=== PATIENT | female | born 1990 | race Asian ===

== ENCOUNTER 2019-12-29 07:44 | Inpatient (IN) | payer OTHER ==
[2019-12-29] MEDS ORDERED: MINERAL OIL 30 ML ORAL LIQD PO PRN (08:51)
[2019-12-29] MEDS ORDERED: ePHEDrine SULFATE 50 MG/1 ML INJ IV PRN (08:51)
[2019-12-29] MEDS ORDERED: ONDANSETRON 4 MG/2 ML INJ IV PRN ×2 (08:51→16:18)
[2019-12-29] MEDS ORDERED: fentaNYL 100 MCG/2 ML INJ IV PRN (08:51)
[2019-12-29] MEDS ORDERED: TERBUTALINE 1 MG/1 ML INJ IVP PRN (08:51)
[2019-12-29] MEDS ORDERED: AMPICILLIN/NS 2 GM/100 ML 2 GM/100 ML BAG IV ONE (08:51)
[2019-12-29] MEDS ORDERED: BUTORPHANOL 2 MG/1 ML INJ IV PRN (08:51)
[2019-12-29] MEDS ORDERED: TERBUTALINE 1 MG/1 ML INJ SUB-Q PRN (08:51)
[2019-12-29] MEDS ORDERED: OXYTOCIN 20 UNIT/1000ML DRIP 20 UNITS/1,000 ML BAG IV SCH (09:00)
[2019-12-29] MEDS ORDERED: LACTATED RINGERS 1,000 ML IV SCH (09:00)
[2019-12-29] MEDS ORDERED: OXYTOCIN DRIP 30 UNITS/500 ML BAG IV SCH (09:00)
[2019-12-29] MEDS ORDERED: LIDOCAINE (2%) 20 MG/1 ML VIAL 20 ML MDV INFILTRATI ONE ×2 (10:00→13:14)
--- NOTE | 2019-12-29 10:33 | History and Physical Report ---
History of Present Illness Date of examination: 12/29/19 Date of admission: 12/29/2019 Chief complaint: Leaking of fluids History of present illness: 29 yo, @ 39.5 wks, initiated care with [facility] at 12.4 wks gestation. Her has been uncomplicated. She presents to [facility] with reports of leaking of fluids since unknown time. Reports +FM. Denies any VB. Labs: B+, antibody negative; rubella immune; RPR non-reactive; HIV non-reactive; GC/C hlamydia negative; HBsAg negative; 1 hr gtt - 145; 3 hr gtt - 140, 139, 128, 81; GBS negative Past History Past Medical History: no pertinent history Past Surgical History: no surgical history Family/Genetic History: none Social history: , full code. denies: smoking, alcohol abuse, prescription drug abuse, IV drug use - Obstetrical History Expected Date of Delivery: 01/06/20 Actual Gestation: 38 Week(s) 6 Day(s) : 1 Para: 0 Hx # Term Pregnancies: 0 Number of Pregnancies: 0 Spontaneous Abortions: 0 Induced : 0 Number of Living Children: 0 Medications and Allergies Allergies Allergy/AdvReac Type Severity Reaction Status Date / Time cephalexin Allergy Swelling Verified 12/29/19 09:33 Active Meds: Active Medications Butorphanol Tartrate (Stadol) 2 mg IV Q2H PRN PRN Reason: Pain , Severe (7-10) Ephedrine Sulfate (Ephedrine Sulfate) 10 mg IV Q2M PRN PRN Reason: Hypotension Fentanyl (Sublimaze) 100 mcg IV Q2H PRN PRN Reason: Pain,Severe (7-10) LABOR PAIN Oxytocin/Sodium Chloride (Pitocin/Ns 20 Unit/1000ml Drip) 20 units in 1,000 mls @ 125 mls/hr IV DIRECT DEEDEE Oxytocin/Sodium Chloride (Pitocin/Ns 30 Unit/500ml) 30 units in 500 mls @ 2 mls/hr IV TITR DEEDEE; Protocol Lactated Ringer's (Lactated Ringers) 1,000 mls @ 125 mls/hr IV DIRECT DEEDEE Mineral Oil (Mineral Oil) 30 ml PO QHS PRN PRN Reason: Constipation Ondansetron HCl (Zofran) 4 mg IV Q8H PRN PRN Reason: Nausea And Vomiting Terbutaline Sulfate (Brethine) 0.25 mg SUB-Q ONCE PRN PRN Reason: Hyperstimulation/Hypertonicity Terbutaline Sulfate (Brethine) 0.25 mg IVP ONCE PRN PRN Reason: Hyperstimulation/Hypertonicity Review of Systems All systems: negative Genitourinary: leakage of fluid (clear fluids) - Vital Signs Vital signs: Vital Signs Pulse Pulse Ox 59 L 98 12/29/19 08:14 12/29/19 08:14 Temp Pulse Resp BP Pulse Ox 68 16 121/70 98 12/29/19 10:18 12/29/19 08:19 12/29/19 10:00 12/29/19 10:18 - Physical Exam Breasts: Positive: normal Cardiovascular: Regular rate Lungs: Positive: Normal air movement Abdomen: Positive: other (gravid) Genitourinary (Female): Positive: normal external genitalia Vagina: Positive: other (clear fluids noted) Uterus: Positive: enlarged (S=D) Extremities: Positive: normal - Obstetrical FHR: category 1 Uterine Contraction Monitor Mode: External Cervical Dilatation: 3 (per RN) Cervical Effacement Percentage: 50 station: -2 Uterine Contraction Frequency (min): 3-6 Uterine Contraction Pattern: Irregular Uterine Tone Measurement Phase: Resting Uterine Contraction Intensity: Mild Results All other labs normal. Assessment and Plan - Patient Problems (1) SROM (spontaneous rupture of membranes) Current Visit: Yes Status: Acute Plan to address problem: Admit to L & D Pitocin augmentation @ 2mu/min, increase as tolerated Pain meds as tolerated Anticipate (2) 38 weeks gestation of Current Visit: Yes Status: Acute
[2019-12-29 10:57] LABS: Hematocrit 38.5 % (30.3-42.9); Hemoglobin 12.5 gm/dl (10.1-14.3); Mean Corpuscular HGB Conc 33 % (30-34); Mean Corpuscular Volume 86 fl (79-97); Platelet Count 230 K/mm3 (140-440); Red Blood Count 4.49 M/mm3 (3.65-5.03); Red Cell Distribution Width 15.9 % (13.2-15.2)
[2019-12-29] MEDS ORDERED: AMPICILLIN/NS 1 GM/50 ML 1 GM/50 ML BAG IV SCH (13:00)
[2019-12-29] MEDS ORDERED: PROMETHAZINE 25 MG TAB PO PRN (16:18)
[2019-12-29] MEDS ORDERED: diphenhydrAMINE 25 MG CAP PO PRN (16:18)
[2019-12-29] MEDS ORDERED: WITCH HAZEL/ GLYCERIN PAD TP PRN (16:18)
[2019-12-29] MEDS ORDERED: LANOLIN/ZINC/DIMETHICONE (LANSINOH) 7 GM TP PRN (16:18)
--- NOTE | 2019-12-29 16:26 | Procedure Note ---
OB Delivery Note - Delivery Date of Delivery: 12/29/19 (1530) Surgeon: REJI KINSEY (CNM) Estimated blood loss: 300cc - Vaginal Delivery presentation: vertex, compound (left hand) Delivery position: OA (MIRYAM) Delivery induction: none Delivery augmentation: rupture of membranes (12/29/2019 @ 0600), pitocin Delivery monitor: external FHT, external uterine Route of delivery: Delivery placenta: spontaneous (1535) Delivery cord: 3 umbilical vessels Episiotomy: none Delivery laceration: 2nd degree (repaired) Delivery repair: vicryl (3.0 CT-1, 3.0 SH) Anesthesia: none Delivery comments: of viable, slightly stunned male infant. Placed directly on maternal abdomen, dried with warm blanket and manually stimulated producing spontaneous cry. Cord double clamped, cut by myself after cessation of pulsation. Placenta spontaneously delivered, rinaldi, disposed per hospital policy. Perineum with 2nd degree laceration, repaired, ice pack applied. Uterus firm @ U-2, hemostasis maintained. Mother and baby safe, stable and left in care of RN. - A at 1 minute: 8 at 5 minutes: 9 Gender: Female (Weight: 3315 gms (7lbs 5ozs) 18.5 inches)
[2019-12-29] MEDS: IBUPROFEN 600 MG TAB PO SCH ×2 (18:30→23:00)
[2019-12-29] MEDS: oxyCODONE /ACETAMINOPHEN 5-325MG TAB PO PRN (21:53)
[2019-12-30 04:49] LABS: Hematocrit 31.3 % (30.3-42.9); Hemoglobin 10.2 gm/dl (10.1-14.3)
[2019-12-30] MEDS: IBUPROFEN 600 MG TAB PO SCH ×2 (06:09→16:31)
[2019-12-30] MEDS: PRENATAL VIT27-FE FUMARATE-FOLIC ACID VIT TAB PO SCH (09:40)
[2019-12-30] MEDS: oxyCODONE /ACETAMINOPHEN 5-325MG TAB PO PRN (09:40)
[2019-12-30] MEDS: FERROUS SULFATE 325 MG TAB PO SCH ×2 (09:40→22:21)
--- NOTE | 2019-12-30 11:09 | Progress Note ---
Assessment and Plan A: Pp Day #1 Stable P: Follow Routine Orders D/C Home in AM RTO in 6 Weeks Subjective - Subjective Date of service: 12/30/19 Patient reports: appetite normal, voiding normally, pain well controlled, flatus, ambulating normally Wesley: doing well Objective - Vital Signs Latest vital signs: Vital Signs Temp Pulse Resp BP BP Pulse Ox 12/30/19 08:04 98.5 F 99 H 18 104/54 98 12/30/19 05:52 97.9 F 93 H 20 98/61 98 12/30/19 01:44 98.2 F 77 16 107/60 98 12/29/19 22:00 99.6 F 12/29/19 21:10 100 F H 82 18 110/63 100 12/29/19 20:47 100.0 F H 85 18 110/63 98 12/29/19 18:05 86 112/61 12/29/19 17:50 76 116/58 12/29/19 17:36 83 123/59 12/29/19 17:20 81 114/65 12/29/19 17:05 81 117/62 12/29/19 16:12 83 99 12/29/19 16:09 91 H 88 12/29/19 16:07 94 H 100 12/29/19 16:05 101 H 133/61 12/29/19 16:02 101 H 100 12/29/19 15:57 80 100 12/29/19 15:52 108 H 98 12/29/19 15:50 96 H 145/85 12/29/19 15:47 111 H 98 12/29/19 15:42 99 H 100 12/29/19 15:37 98 H 100 12/29/19 15:35 93 H 106/59 12/29/19 15:32 85 96 12/29/19 15:29 94 H 119/66 12/29/19 15:27 98 H 97 12/29/19 15:22 89 98 12/29/19 15:17 85 98 12/29/19 15:12 104 H 96 12/29/19 15:07 85 97 12/29/19 15:02 91 H 98 12/29/19 15:00 86 144/107 94 12/29/19 14:57 82 97 12/29/19 14:54 88 94 12/29/19 14:52 75 98 06/16/20 14:47 87 97 12/29/19 14:44 71 91 12/29/19 14:42 75 100 12/29/19 14:37 84 98 12/29/19 14:32 73 94 12/29/19 14:31 84 91 12/29/19 14:29 70 134/73 12/29/19 14:27 74 98 12/29/19 14:23 79 88 12/29/19 14:22 84 99 12/29/19 14:17 69 100 12/29/19 14:14 73 L 12/29/19 14:12 77 99 12/29/19 14:07 70 91 12/29/19 14:02 73 97 12/29/19 14:00 75 123/60 12/29/19 13:59 59 L 70 L 12/29/19 13:57 87 73 L 12/29/19 13:52 66 89 12/29/19 13:47 80 98 12/29/19 13:46 78 0 L 12/29/19 13:44 85 123/85 12/29/19 13:36 65 71 L 12/29/19 13:35 86 100 12/29/19 13:30 62 126/80 95 12/29/19 13:25 61 97 12/29/19 13:24 90 125/87 12/29/19 13:20 82 99 12/29/19 13:17 81 87 12/29/19 13:14 80 97 12/29/19 13:11 93 H 89 12/29/19 13:09 67 98 12/29/19 13:04 77 99 12/29/19 13:02 75 L 12/29/19 13:00 62 123/73 12/29/19 12:59 77 100 12/29/19 12:57 65 86 12/29/19 12:54 75 72 L 12/29/19 12:51 70 77 L 12/29/19 12:49 61 99 12/29/19 12:44 80 94 12/29/19 12:39 70 98 12/29/19 12:34 59 L 98 12/29/19 12:30 71 125/73 12/29/19 12:29 72 100 12/29/19 12:24 72 100 12/29/19 12:19 65 99 12/29/19 12:14 73 100 12/29/19 12:09 65 90 12/29/19 12:04 72 98 12/29/19 12:00 65 120/82 12/29/19 11:59 65 100 12/29/19 11:54 70 98 12/29/19 11:49 75 100 12/29/19 11:44 70 100 12/29/19 11:39 78 100 12/29/19 11:34 72 98 12/29/19 11:30 68 138/82 12/29/19 11:29 77 100 12/29/19 11:24 65 98 12/29/19 11:19 71 100 12/29/19 11:14 67 98 12/29/19 11:09 77 96 Intake and Output 12/29/19 12/30/19 12/30/19 22:59 06:59 14:59 Intake Total 360 240 Output Total 700 1400 Balance -700 -1040 240 Intake: Oral 240 Intake, Free Water 360 Output: Urine 700 1400 Indwelling Catheter 700 Void 1400 Other: Total, Intake Amount 240 Total, Output Amount 700 800 - Exam Breasts: Present: normal Cardiovascular: Present: Regular rate Lungs: Present: Clear to auscultation, Normal air movement Abdomen: Present: normal appearance, soft, normal bowel sounds Uterus: Present: normal, firm, fundal height below umbilicus Extremities: Present: normal
--- NOTE | 2019-12-30 11:10 | Discharge Summary ---
Providers - Providers Date of Admission: 12/29/19 16:08 Date of discharge: 12/31/19 Attending physician: VELIA VALLADARES MD Primary care physician: L[facility] Hospitalization Reason for admission: rupture of membranes Delivery: Episiotomy: none Laceration: 2nd degree Other procedures: none complications: none Discharge diagnosis: IUP at term delivered baby: female Condition at discharge: Good Disposition: DC-01 TO HOME OR SELFCARE Plan - Provider Discharge Summary Activity: routine, no sex for 6 weeks, no heavy lifting 4 weeks, no strenuous exercise Diet: routine Instructions: routine Additional instructions: [] Smoking cessation referral if applicable(refer to patient education folder for contact #) [] Refer to [facility]'s [facility] Booklet Call your doctor immediately for: * Fever > 100.5 * Heavy vaginal bleeding ( >1 pad per hour) * Severe persistent headache * Shortness of breath * Reddened, hot, painful area to leg or breast * Drainage or odor from incision. * Keep incision clean and dry at all times and follow doctor's instructions regarding bathing/showering - Follow up plan Follow up: PRIMARY CAREMD [Primary Care Provider] - 6 Weeks
[2019-12-30] MEDS: MAGNESIUM HYDROXIDE (MOM) ORAL LIQD UDC PO PRN ×2 (16:32→22:28)
[2019-12-31] MEDS: IBUPROFEN 600 MG TAB PO SCH ×2 (05:16→18:09)
[2019-12-31] MEDS: oxyCODONE /ACETAMINOPHEN 5-325MG TAB PO PRN ×2 (08:30→18:11)
[2019-12-31] MEDS: PRENATAL VIT27-FE FUMARATE-FOLIC ACID VIT TAB PO SCH (10:35)
[2019-12-31] MEDS: FERROUS SULFATE 325 MG TAB PO SCH (10:36)
[2019-12-31 16:43] VITALS: BP 133/92
== END 2019-12-31 19:30 | disposition home or self-care (01) | DRG 807 ==
LOC: TRG 07:44 → APU 07:46 → LD 08:39 → TRG 16:06 → LD 16:08 → OB 20:06
PROVIDERS: ADMIT Obstetrics & Gynecology; ATTEND Obstetrics & Gynecology
PROC: 10E0XZZ Delivery of Products of Conception, External Approach (ICD-10-PCS; principal; 2019-12-29)
PROC: 0KQM0ZZ Repair Perineum Muscle, Open Approach (ICD-10-PCS; 2019-12-29)
DX: O32.6XX0 Maternal care for compound presentation, not applicable or unspecified (principal); Z37.0 Single live birth; O70.1 Second degree perineal laceration during delivery; Z3A.39 39 weeks gestation of pregnancy
CPT/HCPCS: 36415; 85014; 85018; 85027; 86850; 86900; 86901; G0378; J2590; J3010; J7120